=== PATIENT | male | born 1965 | race African-American/Black ===

== ENCOUNTER 2022-01-20 14:15 | Inpatient (IN) | payer OTHER ==
[2022-01-20 14:55] VITALS: BMI 22.4
[2022-01-20] MEDS ORDERED: ACETAMINOPHEN 325 MG TABLET (FP) PO PRN ×2 (15:29)
[2022-01-20] MEDS ORDERED: chlordiazePOXIDE HCL 25 MG CAPSULE PO PRN (15:29)
[2022-01-20] MEDS ORDERED: BISMUTH SUBSALICYLATE 524 MG/30 ML PO PRN (15:29)
[2022-01-20] MEDS ORDERED: chlordiazePOXIDE HCL 25 MG CAPSULE PO SCH (15:29)
[2022-01-20] MEDS ORDERED: BENZOCAINE/MENTHOL (CHLORASEPTIC ) LOZENGE MM PRN (15:29)
[2022-01-20] MEDS ORDERED: ONDANSETRON *ODT* 4 MG TABLET SL PRN (15:29)
[2022-01-20] MEDS ORDERED: MAG HYDROX/AL HYDROX/SIMETH 30 ML UNIT-DOSE CUP PO PRN (15:29)
[2022-01-20] MEDS ORDERED: MAGNESIUM CITRATE 300 ML BOTTLE PO PRN (15:29)
[2022-01-20] MEDS ORDERED: MAGNESIUM HYDROX 2400MG/30ML ORAL SUSPENSION 30 ML CUP PO PRN (15:29)
[2022-01-20] MEDS ORDERED: DICYCLOMINE HCL 10 MG CAPSULE PO PRN (15:29)
[2022-01-20] MEDS ORDERED: NICOTINE 10 MG CARTRIDGE (INHALER) IH PRN (15:29)
[2022-01-20] MEDS ORDERED: LOPERAMIDE HCL 2 MG CAPSULE PO PRN (15:29)
[2022-01-20] MEDS ORDERED: METHOCARBAMOL 500 MG TABLET PO PRN (15:29)
[2022-01-20] MEDS ORDERED: LORazepam 1 MG TABLET PO PRN (16:01)
[2022-01-20] MEDS ORDERED: ALBUTEROL SO4 HFA INHALER IH PRN (16:14)
[2022-01-20] MEDS ORDERED: LIDOCAINE VISCOUS 2% ORAL/TOP 15 ML UNIT-DOSE CUP MM PRN (16:27)
[2022-01-20] MEDS: hydrOXYzine PAMOATE 25 MG CAPSULE (FP) PO SCH ×2 (18:16→23:34)
[2022-01-20] MEDS: LORazepam 2 MG TABLET PO SCH ×2 (18:16→23:37)
[2022-01-20] MEDS: PRENATAL VITAMINS W/ FOLIC ACID TABLET (FP) PO SCH (19:46)
[2022-01-20] MEDS: levETIRAcetam 500 MG TABLET (FP) PO SCH (23:33)
[2022-01-20] MEDS: MELATONIN 5 MG TABLETS PO SCH (23:33)
[2022-01-20] MEDS: THIAMINE HCL 100 MG TABLET (FP) PO SCH (23:34)
[2022-01-20] MEDS: LABETALOL HCL 200 MG TABLET (FP) PO SCH (23:37)
[2022-01-21] MEDS: LORazepam 2 MG TABLET PO SCH ×4 (05:57→23:15)
[2022-01-21] MEDS: hydrOXYzine PAMOATE 25 MG CAPSULE (FP) PO SCH ×5 (05:57→23:15)
[2022-01-21] MEDS: FERROUS SO4 325 MG TABLET (FP) PO SCH (06:04)
[2022-01-21] MEDS ORDERED: [UNRECOGNIZED DRUG - OTHER] PO SCH (10:00)
[2022-01-21] MEDS ORDERED: LABETALOL HCL 100 MG TABLET (FP) PO SCH (10:00)
[2022-01-21] MEDS ORDERED: amLODIPine BESYLATE 10 MG TABLET (FP) PO SCH (10:00)
[2022-01-21] MEDS ORDERED: LEVETIRACETAM 1500 MG PO SCH (10:00)
[2022-01-21 10:08] LABS: HEMATOCRIT 28.8 % (35.4-49); HEMOGLOBIN 9.3 GM/dL (11.7-16.9); MCHC 32.4 g/dl (32.0-35.9); MEAN CELL VOLUME 86.4 fl (80-96); MEAN PLT VOLUME 9.1 fl (7.5-11.1); PLATELET COUNT 611 10^3/uL (134-434); RBC 3.34 M/mm3 (4.00-5.60); RDW 14.9 % (11.9-15.9); WHITE BLOOD COUNT 6.8 K/mm3 (4.0-10.0)
[2022-01-21] MEDS: levETIRAcetam 500 MG TABLET (FP) PO SCH ×2 (10:31→23:15)
[2022-01-21] MEDS: LABETALOL HCL 200 MG TABLET (FP) PO SCH ×2 (10:31→23:15)
[2022-01-21] MEDS: PRENATAL VITAMINS W/ FOLIC ACID TABLET (FP) PO SCH (10:31)
[2022-01-21] MEDS: amLODIPine BESYLATE 10 MG TABLET (FP) PO SCH (10:32)
[2022-01-21] MEDS: PANTOPRAZOLE 40 MG TABLET PO SCH (10:32)
[2022-01-21] MEDS: BACLOFEN 10 MG TABLET (FP) PO PRN (10:32)
[2022-01-21] MEDS: TIOTROPIUM/OLODATEROL HCL (STIOLTO) 4 GM INHALER IH SCH (10:36)
[2022-01-21 11:38] LABS: CALCIUM 8.8 mg/dL (8.5-10.1)
[2022-01-21 11:39] LABS: ALBUMIN 3.2 g/dl (3.4-5.0); BLOOD UREA NITROGEN 17.2 mg/dL (7-18)
[2022-01-21 11:42] LABS: BILIRUBIN,TOTAL 0.4 mg/dL (0.2-1); CREATININE 1.2 mg/dL (0.55-1.3)
[2022-01-21 11:43] LABS: TOT PROT 6.4 g/dl (6.4-8.2)
[2022-01-21] MEDS: THIAMINE HCL 100 MG TABLET (FP) PO SCH (23:15)
[2022-01-21] MEDS: MELATONIN 5 MG TABLETS PO SCH (23:15)
[2022-01-22] MEDS ORDERED: chlordiazePOXIDE HCL 25 MG CAPSULE PO SCH (05:00)
[2022-01-22] MEDS: hydrOXYzine PAMOATE 25 MG CAPSULE (FP) PO SCH ×5 (05:38→22:38)
[2022-01-22] MEDS: LORazepam 1 MG TABLET PO SCH ×4 (05:38→22:38)
[2022-01-22] MEDS: FERROUS SO4 325 MG TABLET (FP) PO SCH (06:03)
[2022-01-22] MEDS: amLODIPine BESYLATE 10 MG TABLET (FP) PO SCH (10:32)
[2022-01-22] MEDS: PANTOPRAZOLE 40 MG TABLET PO SCH (10:32)
[2022-01-22] MEDS: levETIRAcetam 500 MG TABLET (FP) PO SCH ×2 (10:32→22:37)
[2022-01-22] MEDS: PRENATAL VITAMINS W/ FOLIC ACID TABLET (FP) PO SCH (10:32)
[2022-01-22] MEDS: BACLOFEN 10 MG TABLET (FP) PO PRN (10:34)
[2022-01-22] MEDS: TIOTROPIUM/OLODATEROL HCL (STIOLTO) 4 GM INHALER IH SCH (10:36)
[2022-01-22] MEDS: LABETALOL HCL 200 MG TABLET (FP) PO SCH ×2 (10:36→22:37)
[2022-01-22] MEDS ORDERED: PENICILLIN G BENZATHINE 2,400,000 UNIT/4 ML PFS IM ONE (14:28)
[2022-01-22] MEDS: MELATONIN 5 MG TABLETS PO SCH (22:37)
[2022-01-22] MEDS: THIAMINE HCL 100 MG TABLET (FP) PO SCH (22:38)
[2022-01-23] MEDS ORDERED: chlordiazePOXIDE HCL 10 MG CAPSULE PO PRN
[2022-01-23] MEDS ORDERED: LORazepam 0.5 MG TABLET PO PRN
[2022-01-23] MEDS ORDERED: chlordiazePOXIDE HCL 10 MG CAPSULE PO SCH (05:00)
[2022-01-23] MEDS: LORazepam 0.5 MG TABLET PO SCH ×4 (05:57→22:06)
[2022-01-23] MEDS: hydrOXYzine PAMOATE 25 MG CAPSULE (FP) PO SCH ×5 (05:57→22:06)
[2022-01-23] MEDS: FERROUS SO4 325 MG TABLET (FP) PO SCH (08:10)
[2022-01-23] MEDS: PRENATAL VITAMINS W/ FOLIC ACID TABLET (FP) PO SCH (10:55)
[2022-01-23] MEDS: levETIRAcetam 500 MG TABLET (FP) PO SCH ×2 (10:55→22:05)
[2022-01-23] MEDS: PANTOPRAZOLE 40 MG TABLET PO SCH (10:56)
[2022-01-23] MEDS: LABETALOL HCL 200 MG TABLET (FP) PO SCH ×2 (10:56→22:05)
[2022-01-23] MEDS: BACLOFEN 10 MG TABLET (FP) PO PRN (10:56)
[2022-01-23] MEDS: amLODIPine BESYLATE 10 MG TABLET (FP) PO SCH (10:56)
[2022-01-23] MEDS: TIOTROPIUM/OLODATEROL HCL (STIOLTO) 4 GM INHALER IH SCH (10:59)
[2022-01-23] MEDS: THIAMINE HCL 100 MG TABLET (FP) PO SCH (22:05)
[2022-01-23] MEDS: MELATONIN 5 MG TABLETS PO SCH (22:27)
[2022-01-24] MEDS ORDERED: LORazepam 0.5 MG TABLET PO ONE (05:00)
[2022-01-24] MEDS ORDERED: chlordiazePOXIDE HCL 10 MG CAPSULE PO SCH (05:00)
[2022-01-24] MEDS: hydrOXYzine PAMOATE 25 MG CAPSULE (FP) PO SCH ×5 (05:46→22:26)
[2022-01-24] MEDS: FERROUS SO4 325 MG TABLET (FP) PO SCH (07:29)
[2022-01-24] MEDS: levETIRAcetam 500 MG TABLET (FP) PO SCH ×2 (10:55→22:26)
[2022-01-24] MEDS: LABETALOL HCL 200 MG TABLET (FP) PO SCH ×2 (10:56→22:26)
[2022-01-24] MEDS: amLODIPine BESYLATE 10 MG TABLET (FP) PO SCH (10:56)
[2022-01-24] MEDS: PRENATAL VITAMINS W/ FOLIC ACID TABLET (FP) PO SCH (10:56)
[2022-01-24] MEDS: PANTOPRAZOLE 40 MG TABLET PO SCH (10:56)
[2022-01-24] MEDS: TIOTROPIUM/OLODATEROL HCL (STIOLTO) 4 GM INHALER IH SCH ×2 (10:57→10:59)
[2022-01-24 21:41] VITALS: RESP 18
[2022-01-24] MEDS: MELATONIN 5 MG TABLETS PO SCH (22:26)
[2022-01-24] MEDS: THIAMINE HCL 100 MG TABLET (FP) PO SCH (22:26)
[2022-01-25] MEDS ORDERED: chlordiazePOXIDE HCL 10 MG CAPSULE PO ONE (05:00)
[2022-01-25] MEDS: hydrOXYzine PAMOATE 25 MG CAPSULE (FP) PO SCH ×2 (05:21→10:47)
[2022-01-25] MEDS: FERROUS SO4 325 MG TABLET (FP) PO SCH (07:04)
[2022-01-25] MEDS: TIOTROPIUM/OLODATEROL HCL (STIOLTO) 4 GM INHALER IH SCH (10:47)
[2022-01-25] MEDS: PRENATAL VITAMINS W/ FOLIC ACID TABLET (FP) PO SCH (10:47)
[2022-01-25] MEDS: LABETALOL HCL 200 MG TABLET (FP) PO SCH (10:47)
[2022-01-25] MEDS: amLODIPine BESYLATE 10 MG TABLET (FP) PO SCH (10:47)
[2022-01-25] MEDS: levETIRAcetam 500 MG TABLET (FP) PO SCH (10:47)
[2022-01-25] MEDS: PANTOPRAZOLE 40 MG TABLET PO SCH (10:47)
[2022-01-25 12:49] VITALS: BP 137/86; PULSE 73; TEMP 97.2
== END 2022-01-25 12:14 | disposition home or self-care (01) | DRG 775 ==
LOC: YASAS 14:15 → Y3N 16:10
PROVIDERS: ADMIT Allergy & Immunology; ATTEND Surgery
PROC: HZ2ZZZZ Detoxification Services for Substance Abuse Treatment (ICD-10-PCS; principal; 2022-01-20)
DX: F10.230 Alcohol dependence with withdrawal, uncomplicated (principal); F17.210 Nicotine dependence, cigarettes, uncomplicated; F19.24 Other psychoactive substance dependence with psychoactive substance-induced mood disorder; F32.A Depression, unspecified; D64.9 Anemia, unspecified; I10 Essential (primary) hypertension; J44.9 Chronic obstructive pulmonary disease, unspecified; N18.9 Chronic kidney disease, unspecified; G40.909 Epilepsy, unspecified, not intractable, without status epilepticus; Z86.19 Personal history of other infectious and parasitic diseases; Z91.013 Allergy to seafood; Z56.0 Unemployment, unspecified; Z59.00 Homelessness unspecified
CPT/HCPCS: 36415; 80053; 80177; 82140; 85027; 86593; 86780; 93005; 93010; C9803-CS; J0475; J3535; Q0162; U0003; U0005

== ENCOUNTER 2022-01-25 12:19 | Inpatient (IN) | payer OTHER ==
[2022-01-25] MEDS ORDERED: MAG HYDROX/AL HYDROX/SIMETH 30 ML UNIT-DOSE CUP PO PRN (14:39)
[2022-01-25] MEDS ORDERED: BENZOCAINE/MENTHOL (CHLORASEPTIC ) LOZENGE MM PRN (14:39)
[2022-01-25] MEDS ORDERED: MAGNESIUM CITRATE 300 ML BOTTLE PO PRN (14:39)
[2022-01-25] MEDS ORDERED: P-EPHED 60MG/TRIPROLIDI 2.5MG TABLET PO PRN (14:39)
[2022-01-25] MEDS ORDERED: LOPERAMIDE HCL 2 MG CAPSULE PO PRN (14:39)
[2022-01-25] MEDS ORDERED: MAGNESIUM HYDROX 2400MG/30ML ORAL SUSPENSION 30 ML CUP PO PRN (14:39)
[2022-01-25] MEDS ORDERED: guaiFENesin 200 MG/10 ML 10 ML UNIT-DOSE CUPS PO PRN (14:39)
[2022-01-25] MEDS ORDERED: BACLOFEN 10 MG TABLET (FP) PO PRN (14:40)
[2022-01-25] MEDS: LACTULOSE 20 GM/30 ML UDC (FOR ORAL USE ONLY) PO PRN ×2 (16:10→21:46)
[2022-01-25] MEDS: hydrOXYzine PAMOATE 25 MG CAPSULE (FP) PO PRN (21:45)
[2022-01-25] MEDS: levETIRAcetam 500 MG TABLET (FP) PO SCH (21:45)
[2022-01-25] MEDS: THIAMINE HCL 100 MG TABLET (FP) PO SCH (21:45)
[2022-01-25] MEDS: LABETALOL HCL 200 MG TABLET (FP) PO SCH (21:46)
[2022-01-25] MEDS: IBUPROFEN 400 MG TABLET (FP) PO PRN (21:47)
[2022-01-25] MEDS ORDERED: MELATONIN 5 MG TABLETS PO SCH (22:00)
[2022-01-26] MEDS: NICOTINE 7 MG/24 HOURS TOPICAL PATCH TD SCH (09:24)
[2022-01-26] MEDS: levETIRAcetam 500 MG TABLET (FP) PO SCH ×2 (09:24→21:15)
[2022-01-26] MEDS: FERROUS SO4 325 MG TABLET (FP) PO SCH (09:24)
[2022-01-26] MEDS: PRENATAL VITAMINS W/ FOLIC ACID TABLET (FP) PO SCH (09:25)
[2022-01-26] MEDS: LABETALOL HCL 200 MG TABLET (FP) PO SCH ×2 (09:25→21:16)
[2022-01-26] MEDS: amLODIPine BESYLATE 10 MG TABLET (FP) PO SCH (09:25)
[2022-01-26] MEDS: PANTOPRAZOLE 40 MG TABLET PO SCH (09:26)
[2022-01-26] MEDS: TIOTROPIUM/OLODATEROL HCL (STIOLTO) 4 GM INHALER IH SCH (09:27)
[2022-01-26] MEDS: THIAMINE HCL 100 MG TABLET (FP) PO SCH (21:15)
[2022-01-26] MEDS: hydrOXYzine PAMOATE 25 MG CAPSULE (FP) PO PRN (21:16)
[2022-01-27] MEDS: NICOTINE 7 MG/24 HOURS TOPICAL PATCH TD SCH (10:05)
[2022-01-27] MEDS: FERROUS SO4 325 MG TABLET (FP) PO SCH (10:06)
[2022-01-27] MEDS: LABETALOL HCL 200 MG TABLET (FP) PO SCH ×2 (10:06→21:19)
[2022-01-27] MEDS: amLODIPine BESYLATE 10 MG TABLET (FP) PO SCH (10:07)
[2022-01-27] MEDS: PANTOPRAZOLE 40 MG TABLET PO SCH (10:07)
[2022-01-27] MEDS: PRENATAL VITAMINS W/ FOLIC ACID TABLET (FP) PO SCH (10:07)
[2022-01-27] MEDS: levETIRAcetam 500 MG TABLET (FP) PO SCH ×2 (10:07→21:19)
[2022-01-27] MEDS: TIOTROPIUM/OLODATEROL HCL (STIOLTO) 4 GM INHALER IH SCH (10:08)
[2022-01-27] MEDS: ONDANSETRON *ODT* 4 MG TABLET SL PRN (14:12)
[2022-01-27] MEDS: hydrOXYzine PAMOATE 25 MG CAPSULE (FP) PO PRN (21:19)
[2022-01-27] MEDS: SUVOREXANT 10 MG TABLET PO PRN (21:20)
[2022-01-27] MEDS: THIAMINE HCL 100 MG TABLET (FP) PO SCH (21:20)
[2022-01-28] MEDS: FERROUS SO4 325 MG TABLET (FP) PO SCH (09:47)
[2022-01-28] MEDS: levETIRAcetam 500 MG TABLET (FP) PO SCH ×2 (09:47→21:22)
[2022-01-28] MEDS: NICOTINE 7 MG/24 HOURS TOPICAL PATCH TD SCH (09:47)
[2022-01-28] MEDS: amLODIPine BESYLATE 10 MG TABLET (FP) PO SCH (09:48)
[2022-01-28] MEDS: PANTOPRAZOLE 40 MG TABLET PO SCH (09:48)
[2022-01-28] MEDS: PRENATAL VITAMINS W/ FOLIC ACID TABLET (FP) PO SCH (09:48)
[2022-01-28] MEDS: LABETALOL HCL 200 MG TABLET (FP) PO SCH ×2 (09:48→21:22)
[2022-01-28] MEDS: TIOTROPIUM/OLODATEROL HCL (STIOLTO) 4 GM INHALER IH SCH (09:49)
[2022-01-28] MEDS: hydrOXYzine PAMOATE 25 MG CAPSULE (FP) PO PRN (21:22)
[2022-01-28] MEDS: THIAMINE HCL 100 MG TABLET (FP) PO SCH (21:23)
[2022-01-28] MEDS: SUVOREXANT 10 MG TABLET PO PRN (21:24)
[2022-01-29] MEDS: FERROUS SO4 325 MG TABLET (FP) PO SCH (10:02)
[2022-01-29] MEDS: NICOTINE 7 MG/24 HOURS TOPICAL PATCH TD SCH (10:03)
[2022-01-29] MEDS: levETIRAcetam 500 MG TABLET (FP) PO SCH ×2 (10:03→21:12)
[2022-01-29] MEDS: PANTOPRAZOLE 40 MG TABLET PO SCH (10:04)
[2022-01-29] MEDS: amLODIPine BESYLATE 10 MG TABLET (FP) PO SCH (10:04)
[2022-01-29] MEDS: LABETALOL HCL 200 MG TABLET (FP) PO SCH ×2 (10:04→21:12)
[2022-01-29] MEDS: PRENATAL VITAMINS W/ FOLIC ACID TABLET (FP) PO SCH (10:04)
[2022-01-29] MEDS: TIOTROPIUM/OLODATEROL HCL (STIOLTO) 4 GM INHALER IH SCH (10:05)
[2022-01-29] MEDS: BACLOFEN 10 MG TABLET (FP) PO SCH (21:12)
[2022-01-29] MEDS: hydrOXYzine PAMOATE 25 MG CAPSULE (FP) PO PRN (21:12)
[2022-01-29] MEDS: SUVOREXANT 10 MG TABLET PO PRN (21:13)
[2022-01-29] MEDS: THIAMINE HCL 100 MG TABLET (FP) PO SCH (21:35)
[2022-01-30] MEDS: BACLOFEN 10 MG TABLET (FP) PO SCH ×3 (06:34→21:31)
[2022-01-30] MEDS: amLODIPine BESYLATE 10 MG TABLET (FP) PO SCH (09:44)
[2022-01-30] MEDS: levETIRAcetam 500 MG TABLET (FP) PO SCH ×2 (09:44→21:31)
[2022-01-30] MEDS: PANTOPRAZOLE 40 MG TABLET PO SCH (09:45)
[2022-01-30] MEDS: FERROUS SO4 325 MG TABLET (FP) PO SCH (09:45)
[2022-01-30] MEDS: PRENATAL VITAMINS W/ FOLIC ACID TABLET (FP) PO SCH (09:45)
[2022-01-30] MEDS: LABETALOL HCL 200 MG TABLET (FP) PO SCH ×2 (09:45→21:31)
[2022-01-30] MEDS: NICOTINE 7 MG/24 HOURS TOPICAL PATCH TD SCH (09:46)
[2022-01-30] MEDS: TIOTROPIUM/OLODATEROL HCL (STIOLTO) 4 GM INHALER IH SCH (09:46)
[2022-01-30] MEDS: hydrOXYzine PAMOATE 25 MG CAPSULE (FP) PO PRN (21:31)
[2022-01-30] MEDS: THIAMINE HCL 100 MG TABLET (FP) PO SCH (21:32)
[2022-01-31] MEDS: BACLOFEN 10 MG TABLET (FP) PO SCH ×3 (06:45→21:22)
[2022-01-31] MEDS: FERROUS SO4 325 MG TABLET (FP) PO SCH (09:36)
[2022-01-31] MEDS: levETIRAcetam 500 MG TABLET (FP) PO SCH ×2 (09:36→21:22)
[2022-01-31] MEDS: NICOTINE 7 MG/24 HOURS TOPICAL PATCH TD SCH (09:37)
[2022-01-31] MEDS: amLODIPine BESYLATE 10 MG TABLET (FP) PO SCH (09:37)
[2022-01-31] MEDS: LABETALOL HCL 200 MG TABLET (FP) PO SCH ×2 (09:37→21:34)
[2022-01-31] MEDS: PANTOPRAZOLE 40 MG TABLET PO SCH (09:37)
[2022-01-31] MEDS: PRENATAL VITAMINS W/ FOLIC ACID TABLET (FP) PO SCH (09:37)
[2022-01-31] MEDS: ACETAMINOPHEN 325 MG TABLET (FP) PO PRN (09:38)
[2022-01-31] MEDS: NICOTINE 10 MG CARTRIDGE (INHALER) IH PRN (09:38)
[2022-01-31] MEDS: TIOTROPIUM/OLODATEROL HCL (STIOLTO) 4 GM INHALER IH SCH (09:54)
[2022-01-31] MEDS: hydrOXYzine PAMOATE 25 MG CAPSULE (FP) PO PRN (21:22)
[2022-01-31] MEDS: THIAMINE HCL 100 MG TABLET (FP) PO SCH (21:22)
[2022-01-31] MEDS: SUVOREXANT 10 MG TABLET PO PRN (21:24)
[2022-02-01] MEDS: ACETAMINOPHEN 325 MG TABLET (FP) PO PRN (02:04)
[2022-02-01] MEDS: BACLOFEN 10 MG TABLET (FP) PO SCH ×3 (06:35→21:19)
[2022-02-01] MEDS: NICOTINE 7 MG/24 HOURS TOPICAL PATCH TD SCH (09:59)
[2022-02-01] MEDS: amLODIPine BESYLATE 10 MG TABLET (FP) PO SCH (10:00)
[2022-02-01] MEDS: FERROUS SO4 325 MG TABLET (FP) PO SCH (10:00)
[2022-02-01] MEDS: PANTOPRAZOLE 40 MG TABLET PO SCH (10:00)
[2022-02-01] MEDS: levETIRAcetam 500 MG TABLET (FP) PO SCH ×2 (10:00→21:19)
[2022-02-01] MEDS: LABETALOL HCL 200 MG TABLET (FP) PO SCH ×2 (10:01→21:19)
[2022-02-01] MEDS: PRENATAL VITAMINS W/ FOLIC ACID TABLET (FP) PO SCH (10:01)
[2022-02-01] MEDS: TIOTROPIUM/OLODATEROL HCL (STIOLTO) 4 GM INHALER IH SCH (10:03)
[2022-02-01] MEDS: THIAMINE HCL 100 MG TABLET (FP) PO SCH (21:18)
[2022-02-01] MEDS: hydrOXYzine PAMOATE 25 MG CAPSULE (FP) PO PRN (21:19)
[2022-02-01] MEDS: SUVOREXANT 10 MG TABLET PO PRN (21:20)
[2022-02-02] MEDS: BACLOFEN 10 MG TABLET (FP) PO SCH ×3 (06:24→21:20)
[2022-02-02] MEDS: PANTOPRAZOLE 40 MG TABLET PO SCH (09:08)
[2022-02-02] MEDS: LABETALOL HCL 200 MG TABLET (FP) PO SCH ×2 (09:08→21:18)
[2022-02-02] MEDS: PRENATAL VITAMINS W/ FOLIC ACID TABLET (FP) PO SCH (09:08)
[2022-02-02] MEDS: FERROUS SO4 325 MG TABLET (FP) PO SCH (09:08)
[2022-02-02] MEDS: ONDANSETRON *ODT* 4 MG TABLET SL PRN (09:08)
[2022-02-02] MEDS: NICOTINE 7 MG/24 HOURS TOPICAL PATCH TD SCH (09:09)
[2022-02-02] MEDS: amLODIPine BESYLATE 10 MG TABLET (FP) PO SCH (09:09)
[2022-02-02] MEDS: levETIRAcetam 500 MG TABLET (FP) PO SCH ×2 (09:09→21:20)
[2022-02-02] MEDS: TIOTROPIUM/OLODATEROL HCL (STIOLTO) 4 GM INHALER IH SCH (10:14)
[2022-02-02] MEDS: THIAMINE HCL 100 MG TABLET (FP) PO SCH (21:18)
[2022-02-02] MEDS: hydrOXYzine PAMOATE 25 MG CAPSULE (FP) PO PRN (21:19)
[2022-02-02] MEDS: IBUPROFEN 400 MG TABLET (FP) PO PRN (21:19)
[2022-02-03] MEDS: BACLOFEN 10 MG TABLET (FP) PO SCH ×3 (06:23→21:29)
[2022-02-03] MEDS: PANTOPRAZOLE 40 MG TABLET PO SCH (10:32)
[2022-02-03] MEDS: NICOTINE 7 MG/24 HOURS TOPICAL PATCH TD SCH (10:33)
[2022-02-03] MEDS: NICOTINE 10 MG CARTRIDGE (INHALER) IH PRN (10:33)
[2022-02-03] MEDS: FERROUS SO4 325 MG TABLET (FP) PO SCH (10:33)
[2022-02-03] MEDS: levETIRAcetam 500 MG TABLET (FP) PO SCH ×2 (10:33→21:28)
[2022-02-03] MEDS: amLODIPine BESYLATE 10 MG TABLET (FP) PO SCH (10:34)
[2022-02-03] MEDS: PRENATAL VITAMINS W/ FOLIC ACID TABLET (FP) PO SCH (10:34)
[2022-02-03] MEDS: LABETALOL HCL 200 MG TABLET (FP) PO SCH ×2 (10:35→21:28)
[2022-02-03] MEDS: ACETAMINOPHEN 325 MG TABLET (FP) PO PRN ×2 (10:36→21:29)
[2022-02-03] MEDS: TIOTROPIUM/OLODATEROL HCL (STIOLTO) 4 GM INHALER IH SCH (10:38)
[2022-02-03] MEDS: hydrOXYzine PAMOATE 25 MG CAPSULE (FP) PO PRN (21:28)
[2022-02-03] MEDS: THIAMINE HCL 100 MG TABLET (FP) PO SCH (21:28)
[2022-02-04] MEDS: BACLOFEN 10 MG TABLET (FP) PO SCH ×3 (06:12→21:05)
[2022-02-04] MEDS: amLODIPine BESYLATE 10 MG TABLET (FP) PO SCH (09:39)
[2022-02-04] MEDS: LABETALOL HCL 200 MG TABLET (FP) PO SCH ×2 (09:39→21:04)
[2022-02-04] MEDS: NICOTINE 7 MG/24 HOURS TOPICAL PATCH TD SCH (09:39)
[2022-02-04] MEDS: levETIRAcetam 500 MG TABLET (FP) PO SCH ×2 (09:39→21:06)
[2022-02-04] MEDS: PANTOPRAZOLE 40 MG TABLET PO SCH (09:40)
[2022-02-04] MEDS: PRENATAL VITAMINS W/ FOLIC ACID TABLET (FP) PO SCH (09:40)
[2022-02-04] MEDS: TIOTROPIUM/OLODATEROL HCL (STIOLTO) 4 GM INHALER IH SCH (09:40)
[2022-02-04] MEDS: FERROUS SO4 325 MG TABLET (FP) PO SCH (09:42)
[2022-02-04] MEDS: chlorproMAZINE HCL 25 MG TABLET PO SCH ×2 (13:09→21:06)
[2022-02-04] MEDS: THIAMINE HCL 100 MG TABLET (FP) PO SCH (21:04)
[2022-02-04] MEDS: hydrOXYzine PAMOATE 25 MG CAPSULE (FP) PO PRN (21:05)
[2022-02-05] MEDS: ONDANSETRON *ODT* 4 MG TABLET SL PRN (01:54)
[2022-02-05] MEDS: BACLOFEN 10 MG TABLET (FP) PO SCH ×3 (07:19→21:23)
[2022-02-05] MEDS: chlorproMAZINE HCL 25 MG TABLET PO SCH ×3 (07:20→21:24)
[2022-02-05] MEDS: FERROUS SO4 325 MG TABLET (FP) PO SCH (09:35)
[2022-02-05] MEDS: NICOTINE 7 MG/24 HOURS TOPICAL PATCH TD SCH (09:36)
[2022-02-05] MEDS: levETIRAcetam 500 MG TABLET (FP) PO SCH ×2 (09:36→21:24)
[2022-02-05] MEDS: PRENATAL VITAMINS W/ FOLIC ACID TABLET (FP) PO SCH (09:36)
[2022-02-05] MEDS: PANTOPRAZOLE 40 MG TABLET PO SCH (09:36)
[2022-02-05] MEDS: TIOTROPIUM/OLODATEROL HCL (STIOLTO) 4 GM INHALER IH SCH (09:37)
[2022-02-05] MEDS: LABETALOL HCL 200 MG TABLET (FP) PO SCH ×2 (10:50→21:23)
[2022-02-05] MEDS: amLODIPine BESYLATE 10 MG TABLET (FP) PO SCH (10:51)
[2022-02-05] MEDS: THIAMINE HCL 100 MG TABLET (FP) PO SCH (21:23)
[2022-02-05] MEDS: hydrOXYzine PAMOATE 25 MG CAPSULE (FP) PO PRN (21:23)
[2022-02-06] MEDS: chlorproMAZINE HCL 25 MG TABLET PO SCH ×3 (06:25→21:22)
[2022-02-06] MEDS: BACLOFEN 10 MG TABLET (FP) PO SCH ×3 (06:25→21:23)
[2022-02-06] MEDS: levETIRAcetam 500 MG TABLET (FP) PO SCH ×2 (10:07→21:23)
[2022-02-06] MEDS: FERROUS SO4 325 MG TABLET (FP) PO SCH (10:08)
[2022-02-06] MEDS: LABETALOL HCL 200 MG TABLET (FP) PO SCH ×2 (10:08→21:22)
[2022-02-06] MEDS: PRENATAL VITAMINS W/ FOLIC ACID TABLET (FP) PO SCH (10:08)
[2022-02-06] MEDS: NICOTINE 7 MG/24 HOURS TOPICAL PATCH TD SCH (10:08)
[2022-02-06] MEDS: amLODIPine BESYLATE 10 MG TABLET (FP) PO SCH (10:08)
[2022-02-06] MEDS: PANTOPRAZOLE 40 MG TABLET PO SCH (10:08)
[2022-02-06] MEDS: TIOTROPIUM/OLODATEROL HCL (STIOLTO) 4 GM INHALER IH SCH (10:09)
[2022-02-06] MEDS: THIAMINE HCL 100 MG TABLET (FP) PO SCH (21:22)
[2022-02-06] MEDS: ONDANSETRON *ODT* 4 MG TABLET SL PRN (21:23)
[2022-02-07] MEDS: BACLOFEN 10 MG TABLET (FP) PO SCH ×3 (06:42→21:20)
[2022-02-07] MEDS: chlorproMAZINE HCL 25 MG TABLET PO SCH ×3 (06:42→21:21)
[2022-02-07] MEDS: levETIRAcetam 500 MG TABLET (FP) PO SCH ×2 (10:01→21:21)
[2022-02-07] MEDS: amLODIPine BESYLATE 10 MG TABLET (FP) PO SCH (10:02)
[2022-02-07] MEDS: PRENATAL VITAMINS W/ FOLIC ACID TABLET (FP) PO SCH (10:02)
[2022-02-07] MEDS: PANTOPRAZOLE 40 MG TABLET PO SCH (10:02)
[2022-02-07] MEDS: FERROUS SO4 325 MG TABLET (FP) PO SCH (10:02)
[2022-02-07] MEDS: LABETALOL HCL 200 MG TABLET (FP) PO SCH ×2 (10:03→21:20)
[2022-02-07] MEDS: NICOTINE 7 MG/24 HOURS TOPICAL PATCH TD SCH (10:03)
[2022-02-07] MEDS: TIOTROPIUM/OLODATEROL HCL (STIOLTO) 4 GM INHALER IH SCH (10:04)
[2022-02-07] MEDS: THIAMINE HCL 100 MG TABLET (FP) PO SCH (21:20)
[2022-02-08] MEDS: ONDANSETRON *ODT* 4 MG TABLET SL PRN (03:22)
[2022-02-08] MEDS: BACLOFEN 10 MG TABLET (FP) PO SCH ×3 (06:39→21:32)
[2022-02-08] MEDS: chlorproMAZINE HCL 25 MG TABLET PO SCH ×3 (06:39→21:32)
[2022-02-08] MEDS: FERROUS SO4 325 MG TABLET (FP) PO SCH (09:52)
[2022-02-08] MEDS: NICOTINE 7 MG/24 HOURS TOPICAL PATCH TD SCH (09:52)
[2022-02-08] MEDS: levETIRAcetam 500 MG TABLET (FP) PO SCH ×2 (09:52→21:32)
[2022-02-08] MEDS: PANTOPRAZOLE 40 MG TABLET PO SCH (09:52)
[2022-02-08] MEDS: PRENATAL VITAMINS W/ FOLIC ACID TABLET (FP) PO SCH (09:52)
[2022-02-08] MEDS: TIOTROPIUM/OLODATEROL HCL (STIOLTO) 4 GM INHALER IH SCH (09:55)
[2022-02-08] MEDS: LABETALOL HCL 200 MG TABLET (FP) PO SCH ×2 (11:04→21:32)
[2022-02-08] MEDS: amLODIPine BESYLATE 10 MG TABLET (FP) PO SCH (11:04)
[2022-02-08] MEDS: THIAMINE HCL 100 MG TABLET (FP) PO SCH (21:32)
[2022-02-09] MEDS: BACLOFEN 10 MG TABLET (FP) PO SCH ×3 (06:26→21:07)
[2022-02-09] MEDS: chlorproMAZINE HCL 25 MG TABLET PO SCH ×3 (06:27→21:08)
[2022-02-09] MEDS: levETIRAcetam 500 MG TABLET (FP) PO SCH ×2 (09:58→21:08)
[2022-02-09] MEDS: FERROUS SO4 325 MG TABLET (FP) PO SCH (09:58)
[2022-02-09] MEDS: PANTOPRAZOLE 40 MG TABLET PO SCH (09:58)
[2022-02-09] MEDS: NICOTINE 7 MG/24 HOURS TOPICAL PATCH TD SCH (09:58)
[2022-02-09] MEDS: PRENATAL VITAMINS W/ FOLIC ACID TABLET (FP) PO SCH (09:58)
[2022-02-09] MEDS: amLODIPine BESYLATE 10 MG TABLET (FP) PO SCH (09:58)
[2022-02-09] MEDS: LABETALOL HCL 200 MG TABLET (FP) PO SCH ×2 (09:59→21:07)
[2022-02-09] MEDS: TIOTROPIUM/OLODATEROL HCL (STIOLTO) 4 GM INHALER IH SCH (10:01)
[2022-02-09] MEDS: THIAMINE HCL 100 MG TABLET (FP) PO SCH (21:07)
[2022-02-10] MEDS: BACLOFEN 10 MG TABLET (FP) PO SCH ×3 (06:39→21:13)
[2022-02-10] MEDS: chlorproMAZINE HCL 25 MG TABLET PO SCH ×3 (06:39→21:13)
[2022-02-10 08:33] VITALS: TEMP 97.7
[2022-02-10] MEDS: FERROUS SO4 325 MG TABLET (FP) PO SCH (10:08)
[2022-02-10] MEDS: levETIRAcetam 500 MG TABLET (FP) PO SCH ×2 (10:08→21:13)
[2022-02-10] MEDS: LABETALOL HCL 200 MG TABLET (FP) PO SCH ×2 (10:08→21:13)
[2022-02-10] MEDS: NICOTINE 7 MG/24 HOURS TOPICAL PATCH TD SCH (10:08)
[2022-02-10] MEDS: amLODIPine BESYLATE 10 MG TABLET (FP) PO SCH (10:09)
[2022-02-10] MEDS: PRENATAL VITAMINS W/ FOLIC ACID TABLET (FP) PO SCH (10:09)
[2022-02-10] MEDS: PANTOPRAZOLE 40 MG TABLET PO SCH (10:09)
[2022-02-10] MEDS: TIOTROPIUM/OLODATEROL HCL (STIOLTO) 4 GM INHALER IH SCH (10:09)
[2022-02-10] MEDS: THIAMINE HCL 100 MG TABLET (FP) PO SCH (21:13)
[2022-02-11] MEDS: BACLOFEN 10 MG TABLET (FP) PO SCH (06:08)
[2022-02-11] MEDS: chlorproMAZINE HCL 25 MG TABLET PO SCH (06:08)
[2022-02-11 06:39] VITALS: RESP 20
[2022-02-11 09:07] VITALS: BP 123/75; PULSE 105
[2022-02-11] MEDS: LABETALOL HCL 200 MG TABLET (FP) PO SCH (09:49)
[2022-02-11] MEDS: PANTOPRAZOLE 40 MG TABLET PO SCH (09:49)
[2022-02-11] MEDS: FERROUS SO4 325 MG TABLET (FP) PO SCH (09:49)
[2022-02-11] MEDS: amLODIPine BESYLATE 10 MG TABLET (FP) PO SCH (09:49)
[2022-02-11] MEDS: NICOTINE 7 MG/24 HOURS TOPICAL PATCH TD SCH (09:49)
[2022-02-11] MEDS: levETIRAcetam 500 MG TABLET (FP) PO SCH (09:49)
[2022-02-11] MEDS: PRENATAL VITAMINS W/ FOLIC ACID TABLET (FP) PO SCH (09:50)
[2022-02-11] MEDS: TIOTROPIUM/OLODATEROL HCL (STIOLTO) 4 GM INHALER IH SCH (09:50)
== END 2022-02-11 10:11 | disposition home or self-care (01) | DRG 772 ==
LOC: YASAS 12:19 → Y3E 12:20
PROVIDERS: ADMIT Allergy & Immunology; ATTEND Psychiatry & Neurology Pain Medicine
PROC: HZ42ZZZ Group Counseling for Substance Abuse Treatment, Cognitive-Behavioral (ICD-10-PCS; principal; 2022-01-25)
DX: F10.20 Alcohol dependence, uncomplicated (principal); F17.210 Nicotine dependence, cigarettes, uncomplicated; I10 Essential (primary) hypertension; R06.6 Hiccough
CPT/HCPCS: 82140; J0475; J3535; Q0162